=== PATIENT | female | born 1965 ===

== ENCOUNTER 2018-02-12 09:44 | Emergency (ER) | payer BC, OTHER ==
[2018-02-12 10:11] VITALS: BP 123/75
--- NOTE | 2018-02-12 11:18 | UC ---
Throat Pain/Nasal Sanju HPI - HPI Summary HPI Summary: Patient presents with an unremarkable past medical history. She presents with 3- 5 days of URI, that began with chest congestion, and cough. The symptoms then settled into her throat. She reports 3 days of worsening throat pain, and pain when she swallows, she also states her glands feel swollen, and feel pressure in her ears. She states she is able to swallow, speak, eat and drink. She denies any change in her voice, thickness under her tongue. Denies any persistent fever or chills. - History of Current Complaint Chief Complaint: UCRespiratory Stated Complaint: SORE THROAT Time Seen by Provider: 02/12/18 11:02 Hx Obtained From: Patient ?: No Onset/Duration: Gradual Onset, Lasting Days Severity: Moderate Pain Intensity: 3 Cough: Nonproductive Associated Signs & Symptoms: Positive: Sinus Discomfort, Nasal Discharge - Epiglottits Risk Factors Epiglottis Risk Factors: Negative - Allergies/Home Medications Allergies/Adverse Reactions: Allergies Allergy/AdvReac Type Severity Reaction Status Date / Time No Known Allergies Allergy Verified 02/12/18 10:11 PMH/Surg Hx/FS Hx/Imm Hx Previously Healthy: Yes - Surgical History Surgical History: Yes Surgery Procedure, Year, and Place: HYSTERECTOMY,APPENDIX,LUMPECTOMY,SALIVARY GLAND REMOVAL, x 3 - Family History Known Family History: Positive: Other - patient is adopted. - Social History Occupation: Employed Full-time Lives: With Family Alcohol Use: Rare Substance Use Type: None Smoking Status (MU): Never Smoked Tobacco Have You Smoked in the Last Year: No Review of Systems Constitutional: Negative Skin: Negative Eyes: Negative ENT: Sore Throat, Ear Ache Respiratory: Negative Cardiovascular: Negative Gastrointestinal: Negative Genitourinary: Negative Motor: Negative Neurovascular: Negative Musculoskeletal: Negative Neurological: Negative Psychological: Negative All Other Systems Reviewed And Are Negative: Yes Physical Exam Triage Information Reviewed: Yes Appearance: Well-Appearing, Well-Nourished Vital Signs: Initial Vital Signs Temp 99 F 02/12/18 10:06 Pulse 70 02/12/18 10:06 Resp 14 02/12/18 10:06 BP 123/75 02/12/18 10:06 Pulse Ox 100 02/12/18 10:06 Vital Signs Reviewed: Yes Eye Exam: Normal ENT: Positive: Pharyngeal erythema, Tonsillar swelling Neck: Positive: Tenderness @, Enlarged Nodes @ - anterior cervical lymphadenopathy. Respiratory Exam: Normal Cardiovascular Exam: Normal Neurological Exam: Normal Psychological Exam: Normal Skin Exam: Normal Throat Pain/Nasal Course/Dx - Course Course Of Treatment: Patient presents 7 days s/p URI, with residual pharyngitis. She will be treated with PENVK 500 mg by mouth four times daily for 10 days. I also recommend that she emply advil and/or tylenol every 4-6 hours. And to increase water, and use throat lozengers. I also recommend that if her symptoms do not get better by the time she completes her antibioics that she would need to be seen by her PCP. She verbalilzed understanding of and in agreement with the discharge plan. - Differential Dx/Diagnosis Differential Diagnosis/HQI/PQRI: Pharyngitis Provider Diagnoses: Pharyngitis. Discharge - Sign-Out/Discharge Documenting (check all that apply): Patient Departure - Discharge Plan Condition: Stable Disposition: HOME Prescriptions: Penicillin VK TAB* [Penicillin VK 250 mg Tab*] 500 mg PO QID #40 tab Patient Education Materials: Pharyngitis (ED) Referrals: No Primary Care Phys,NOPCP [Primary Care Provider] - Additional Instructions: You will need to follow up with your PCP if your symptoms do not resolve by the time you finish your antibiotics. - Billing Disposition and Condition Condition: STABLE Disposition: Home
== END 2018-02-12 11:23 | disposition home or self-care (01) ==
LOC: UCEAST 09:44
DX: J02.9 Acute pharyngitis, unspecified (principal); H92.09 Otalgia, unspecified ear
CPT/HCPCS: 99202; G0463